=== PATIENT | female | born 1990 | race Caucasian/White ===

== ENCOUNTER 2017-03-23 19:23 | Emergency (ER) | payer SELFPAY ==
[2017-03-23 19:31] VITALS: BP 115/71; PULSE 60; TEMP 98; BMI 31.4
--- NOTE | 2017-03-23 21:00 | PDOC ---
History of Present Illness - General Chief Complaint: Eye Problem Stated Complaint: EYE INJURY Time Seen by Provider: 03/23/17 20:29 - History of Present Illness Initial Comments: 03/23/17 21:02 CHIEF COMPLAINT: eye lid swelling HISTORY OF PRESENT ILLNESS: 27 yo F with no PMH [facility] with itching and swelling to R eye since this morning. Denies fever, nausea, vomiting , diarrhea. Denies change in vision, denies headache. No recent travel or sick contacts. PAST MEDICAL HISTORY: Denies past medical history FAMILY HISTORY: Denies SOCIAL HISTORY: Denies tobacco, alcohol, illicit drug use. SURGICAL HISTORY: Denies ALLERGIES: No known drug allergies REVIEW OF SYSTEMS General/Constitutional: Denies fever or chills. Denies weakness, weight change. HEENT: Itching and swelling to R eye. Denies change in vision. Denies ear pain or discharge. Denies sore throat. Skin: Denies rash or easy bruising. Neurologic: Denies headache, vertigo, loss of consciousness, or loss of sensation. PHYSICAL EXAM General Appearance: Well-appearing, appropriately dressed. No apparent distress , no intoxication. HEENT: Mild erythema and swelling to L eyelid. No discharge. EOMI, PERRLA, normal ENT inspection, normal voice, TMs normal, pharynx normal. No conjunctival pallor. No photophobia, scleral icterus. Respiratory/Chest: Lungs CTAB. Cardiovascular: RRR. S1, S2. Musculoskeletal/Extremities: Normal inspection. FROM of all extremities, normal capillary refill. Pelvis Stable. No CVA tenderness. No tenderness to extremities, pedal edema, swelling, erythema or deformity. Integumentary: Appropriate color, dry, warm. No cyanosis, erythema, jaundice or rash Neurologic: senior civil engineer II-XII intact. Fully oriented, alert. Appropriate mood/affect. Motor strength 5/5. No appreciable EOM palsy, facial droop or sensory deficit. 03/23/17 21:21 Past History - Past Medical History Allergies/Adverse Reactions: Allergies Allergy/AdvReac Type Severity Reaction Status Date / Time No Known Drug Allergies Allergy Verified 03/23/17 19:31 Home Medications: Ambulatory Orders Vitamins (Sjr) - 1 tab PO DAILY 01/13/14 Acetaminophen [Tylenol .Regular Strength -] 650 mg PO Q6H PRN 05/14/14 Naphazoline HCl/Phenir Mal [Visine-A -] 1 - 2 drop OS QID PRN #1 bottle Anemia: No Asthma: No Cancer: No Cardiac Disorders: No CVA: No COPD: No CHF: No Dementia: No Diabetes: No GI Disorders: No Disorders: No HTN: No Hypercholesterolemia: No Liver Disease: No Suicide Attempt (Hx): No Seizures: No Thyroid Disease: No - Psycho/Social/Smoking Cessation Hx Anxiety: No Suicidal Ideation: No Smoking Status: No Smoking History: Never smoked Have you smoked in the past 12 months: No Number of Cigarettes Smoked Daily: 0 Hx Alcohol Use: No Drug/Substance Use Hx: No Substance Use Type: None Hx Substance Use Treatment: No *Physical Exam - Vital Signs Last Vital Signs Temp Pulse Resp BP Pulse Ox 98 F 60 18 115/71 100 03/23/17 19:28 03/23/17 19:28 03/23/17 19:28 03/23/17 19:28 03/23/17 19:28 Medical Decision Making - Medical Decision Making 03/23/17 21:20 27 yo F with no PMH [facility] with itching and swelling to R eye since this morning. -Tye A ADvised patient to use warm compress and eye drops and to f/u with ophtho if symptoms persist. Advised patient of signs and symptoms for return to ER; patient verbalized understanding and agrees to plan. *DC/Admit/Observation/Transfer Diagnosis at time of Disposition: Swollen eyelid Qualifiers: Laterality: left Qualified Code(s): H02.846 - Edema of left eye, unspecified eyelid - Discharge Dispostion Admit: No - Prescriptions Prescriptions: Naphazoline HCl/Phenir Mal [Visine-A -] 1 - 2 drop OS QID PRN #1 bottle PRN Reason: eye discomfort - Referrals Referrals: Marek Anna MD [Staff Physician] - - Patient Instructions Printed Discharge Instructions: DI for Conjunctivitis Additional Instructions: Please use eye drops as directed. Place a warm towel on your eye for 15 minutes at least 4 times daily. If your symptoms persist past 3-4 days, please follow up with ophthalmology (referral provided). If you experience sudden eye pain, change in vision, headache, or any new or worsening symptoms, please return to the ER. Utilice gotas para los ojos segn las indicaciones. [place]onga hardy toalla con agua tibia en el lashell por 15 minutos al menos 4 veces cada da. Si enedelia sntomas persisten por mas que 3-4 buenrostro, por favor siga con la oftalmologa (referencia proporcionada). Si experimenta dolor ocular repentino, cambios en la visin, dolor de yayo, o cualquier nuevo o empeoramiento de los sntomas, por favor regrese a la nick de emergencias. Print Language: PUERTO RICAN
== END 2017-03-23 21:05 | disposition home or self-care (01) ==
LOC: JERFT 19:23
DX: H02.846 Edema of left eye, unspecified eyelid (principal)
CPT/HCPCS: 99281-25